=== PATIENT | male | born 2000 | race Caucasian/White ===

== ENCOUNTER 2021-04-21 21:05 | Emergency (ER) | payer OTHER ==
--- NOTE | 2021-04-21 21:31 | ED Physician Documentation ---
History of Present Illness - Stated complaint Stated Complaint: SOA/CHEST PX/DIZZY - Chief complaint Chief Complaint: General - History obtained from History obtained from: Patient - Additonal information Additional information: Patient comes emergency department with chief complaint of intermittent chest pain. He states he gets a sharp and sometimes spasm-like pain that starts in his substernal area and spreads over his left breast. He states he can take deep breaths but it almost hurts more to let the breath out. He states that this can last anywhere from a couple of minutes to up to 45 minutes and subsides on its own. He has been noticing the episodes over the last week and a half, and states that some days he gets them and other days he does not. He states that the only trigger he can think of is that he tends to get a numb and dizzy feeling the morning after Having any amount of alcohol, even a small amount, and the chest symptoms seems to be linked to that sometimes. Patient states that he gets a sense of shortness of breath, but it seems to mostly be because it hurts to breathe. He states he has noticed some puffiness in his ankles and feet at the end of the day, but no calf swelling or pain. The patient denies any chest trauma. He has not been working out. He denies any history of acid reflux. No nausea or vomiting. He states he actually feels fairly fine right now, but his sister, who is a nurse, told him to come in and get evaluated. Patient denies any history of young MIs in his family or aneurysms. No history of DVT/PE. The patient is otherwise healthy, and is employed by the [employer]. He is not a smoker. No other complaints at this time. Review of Systems Ten Systems: 10 systems reviewed and negative Constitutional: reports: Reviewed and negative Eyes: reports: Reviewed and negative Ears: reports: Reviewed and negative Nose: reports: Reviewed and negative Throat: reports: Reviewed and negative Cardiac: reports: Chest pain / pressure. denies: Pedal edema, Calf pain Respiratory: reports: Dyspnea GI: reports: Reviewed and negative : reports: Reviewed and negative Skin: reports: Reviewed and negative Musculoskeletal: reports: Reviewed and negative Neurologic: reports: Reviewed and negative Psychiatric: reports: Reviewed and negative Endocrine: reports: Reviewed and negative Immunocompromised: reports: Reviewed and negative PD PAST MEDICAL HISTORY - Allergies Allergies/Adverse Reactions: Allergies Allergy/AdvReac Type Severity Reaction Status Date / Time No Known Drug Allergies Allergy Verified 04/21/21 21:11 PD ED PE NORMAL - Vitals Vital signs reviewed: Yes - General General: Alert and oriented X 3, No acute distress, Well developed/nourished - HEENT HEENT: Atraumatic, PERRL, EOMI, Moist mucous membranes - Neck Neck: Supple, no meningeal sign - Cardiac Cardiac: RRR, No murmur, Strong equal pulses - Respiratory Respiratory: No respiratory distress, Clear bilaterally - Abdomen Abdomen: Soft, Non tender, Non distended - Derm Derm: Normal color, Warm and dry, No rash - Extremities Extremities: No deformity, No edema, No calf tenderness / cord - Neuro Neuro: Alert and oriented X 3, physicist acoustics 2-12 intact, Normal speech - Psych Psych: Normal mood, Normal affect Results - Vitals Vitals: Vital Signs - 24 hr 04/21/21 04/21/21 04/21/21 21:11 21:15 21:52 Temperature 36.5 C 36.5 C 36.5 C Heart Rate 86 86 81 Respiratory 16 16 16 Rate Blood Pressure 144/61 H 144/61 H 143/60 H O2 Saturation 98 98 99 Oxygen O2 Source Room air - EKG (time done) 2114 Rate: Rate (enter#) (78) Rhythm: NSR [place]: Normal Intervals: Normal MS QRS: Normal Ischemia: Normal ST segments Compare to prior EKG: Old EKG unavailable Computer interpretation: Agree with computer - Labs Labs: Laboratory Tests 04/21/21 21:30 D-Dimer < 200.0 L - Rads (name of study) chest xr Radiology: Final report received, EMP read indepedently, See rad report (neg) PD MEDICAL DECISION MAKING - ED course Complexity details: reviewed results, re-evaluated patient, considered differential, d/w patient ED course: The patient was worked up with EKG, chest x-ray, and D-dimer, all of which were unremarkable. I discussed with the patient that we have not found any evidence of an emergent condition today. I have encouraged him to follow-up with his primary doctor for further concerns regarding this. Departure - Departure Disposition: 01 Home, Self Care Clinical Impression: Chest pain Qualifiers: Chest pain type: unspecified Qualified Code(s): R07.9 - Chest pain, unspecified Condition: Stable Instructions: ED Chest Pain NonCardiac Comments: Your EKG, chest x-ray and D-dimer, the lab that we checked to assess possibility of blood clot, are all within normal limits. Your vital signs and physical exam also are reassuring. There is no evidence of a serious or emergent cause of your chest pain. Given that you noticed the chest pain is worse with movement of your chest wall, such as breathing out, the pain is most likely structural in nature as opposed to coming from one of your vital organs. New may use ibuprofen and/or Tylenol to help with the discomfort. If you feel that drinking alcohol makes this worse, then you should avoid this if you wish to not have the pain anymore. If you have further concerns please follow-up with your primary care physician for further evaluation. Discharge Date/Time: 04/21/21 21:53
--- NOTE | 2021-04-21 21:48 | XRAY Report ---
PROCEDURE: Chest 1 View X-Ray INDICATIONS: chest pain TECHNIQUE: One view of the chest was acquired. COMPARISON: None FINDINGS: Surgical changes and devices: None. Lungs and pleura: No pleural effusions or pneumothorax. Lungs are clear. Mediastinum: Mediastinal contours appear normal. Heart size is normal. Bones and chest wall: No suspicious bony lesions. Overlying soft tissues appear unremarkable. IMPRESSION: No acute cardiopulmonary disease process. Reviewed by: Eva Garrett MD, PhD on 04/21/2021 9:46 PM PST Approved by: Eva Garrett MD, PhD on 04/21/2021 9:46 PM PST Station ID: [id number]
[2021-04-21 21:53] VITALS: BP 143/60
== END 2021-04-21 21:53 | disposition home or self-care (01) ==
LOC: ED 21:05
DX: R07.1 Chest pain on breathing (principal); R06.02 Shortness of breath
CPT/HCPCS: 36415; 85379; 93005; 99284

== ENCOUNTER 2022-07-21 11:34 | Emergency (ER) | payer OTHER ==
--- NOTE | 2022-07-21 12:11 | XRAY Report ---
PROCEDURE: Shoulder 3 View LT INDICATIONS: shoulder px from GLF TECHNIQUE: 3 views of the shoulder were acquired. COMPARISON: None. FINDINGS: Bones: No fractures or dislocations. No suspicious bony lesions. Visualized ribs appear intact. Soft tissues: No suspicious soft tissue calcifications. IMPRESSION: No acute left shoulder fracture or dislocation. Reviewed by: Delon Bergman MD on 07/21/2022 12:09 PM [facility] Approved by: Delon Bergman MD on 07/21/2022 12:09 PM [facility] Station ID: [id number]
--- NOTE | 2022-07-21 13:16 | ED Physician Documentation ---
PD HPI UPPER EXT INJURY - Stated complaint Stated Complaint: LFT SHOULDER INJURY - Chief complaint Chief Complaint: Trauma Ext - History obtained from History obtained from: Patient - Additonal information Additional information: PT comes to the ED for CC of L shoulder pain after a snowboarding accident a few days ago. The pt states he was doing a rail trick, when his board came off the rail, and he fell, striking his shoulder on the rail. He c/o anterolateral pain since. No deformity, edema. Moderately limited ROM. PD PAST MEDICAL HISTORY - Past Medical History Cardiovascular: None Respiratory: None Neuro: None Endocrine/Autoimmune: None GI: None : None HEENT: None Psych: None Musculoskeletal: None Derm: None - Past Surgical History Past Surgical History: No - Present Medications Home Medications: Ambulatory Orders Medication Instructions Recorded Confirmed HYDROcod/ACETAM 5/325 [[place] 5/325] 1 - 2 tablet PO Q6H PRN #14 tablet 07/21/22 - Allergies Allergies/Adverse Reactions: Allergies Allergy/AdvReac Type Severity Reaction Status Date / Time No Known Drug Allergies Allergy Verified 07/21/22 11:47 - Social History Does the pt smoke?: No Smoking Status: Never smoker Does the pt drink ETOH?: Yes Does the pt have substance abuse?: No PD ED PE NORMAL - Vitals Vital signs reviewed: Yes - General General: Alert and oriented X 3, No acute distress - HEENT HEENT: Atraumatic, PERRL, EOMI, Moist mucous membranes - Neck Neck: Supple, no meningeal sign - Cardiac Cardiac: RRR, No murmur - Respiratory Respiratory: No respiratory distress, Clear bilaterally - Derm Derm: Normal color, Warm and dry, No rash - Extremities Extremities: No deformity, No edema, Other (L shoulder Anterior TTP. Moderately limited ROM in all directions.) - Neuro Neuro: Alert and oriented X 3 - Psych Psych: Normal mood, Normal affect Results - Vitals Vitals: Oxygen O2 Source Room air - Rads (name of study) L shoulder XR Radiology: Final report received, See rad report (neg) PD Medical Decision Making - ED course Complexity details: reviewed results, re-evaluated patient, considered differential, d/w patient ED course: Pt was worked up with L shoulder XR series, which was negative. We have discussed ROM exercises and symptomatic management at home. We have discussed the indications for follow-up and return. Departure - Departure Disposition: 01 Home, Self Care Clinical Impression: Sprain of shoulder Qualifiers: Encounter type: initial encounter Shoulder sprain type: unspecified sprain Laterality: left Qualified Code(s): S43.402A - Unspecified sprain of left shoulder joint, initial encounter Condition: Stable Instructions: ED Sprain Shoulder Prescriptions: HYDROcod/ACETAM 5/325 [[place] 5/325] 1 - 2 tablet PO Q6H PRN #14 tablet PRN Reason: Pain Comments: Your x-ray series of the left shoulder looks good. There is no evidence of a f racture or dislocation. Most likely, based on the location of pain and the limitation of movement, you have sprained your shoulder. In general, these kinds of injuries heal well on their own, but can take up to several weeks to begin to feel back to normal. In general, you should start to notice improvement over the next couple of weeks and if you have not began to feel any improvement at all, then by this time, you should schedule an appointment to follow-up with your doctor to discuss whether an MRI would be appropriate. In the meantime, you may take ibuprofen and Tylenol as needed to help with the pain in your shoulder. If this regimen is not sufficient, you may substitute for prescription pain medicine for Tylenol. The prescription for this has been electronically transmitted to the [facility] pharmacy in [place] your request. You should also apply ice packs several times a day to help with the pain and swelling. Also helpful is doing range of motion exercises. These may not necessarily feel comfortable, but will help to work some of the inflammation out and also, will prevent your shoulder from getting sore. We have discussed pot stirs and wall creeps. You may also have your gently range your arm to help get moving again. Consider putting a heat pack on the sore area for about 20 minutes prior to range of motion exercises to help give your shoulder more flexibility. You should not wear a sling as this will cause your arm to freeze up more at the shoulder. Discharge Date/Time: 07/21/22 13:27
[2022-07-21 13:28] VITALS: BP 144/72
== END 2022-07-21 13:27 | disposition home or self-care (01) ==
LOC: ED 11:34
DX: S43.402A Unspecified sprain of left shoulder joint, initial encounter (principal); W19.XXXA Unspecified fall, initial encounter; Y93.23 Activity, snow (alpine) (downhill) skiing, snowboarding, sledding, tobogganing and snow tubing
CPT/HCPCS: 99283

== ENCOUNTER 2022-10-25 07:41 | Emergency (ER) | payer OTHER ==
[2022-10-25 07:52] VITALS: BP 147/74
[2022-10-25] MEDS ORDERED: SODIUM CHLORIDE 0.9% 1,000 ML IV STA (07:55)
[2022-10-25] MEDS ORDERED: METOCLOPRAMIDE 10 MG/2 ML VIAL IVP STA (07:55)
--- NOTE | 2022-10-25 07:56 | ED Physician Documentation ---
PD HPI ABD PAIN - Stated complaint Stated Complaint: VOMITING - Chief complaint Chief Complaint: Abd Pain - History obtained from History obtained from: Patient - Additional information Additional information: Otherwise healthy 22-year-old gentleman had a few drinks last night. Did not feel drunk per se but this morning started vomiting at 5 AM. There is some abdominal discomfort with it but no diarrhea. No sick contacts or recent travel. No history of abdominal surgeries. Review of Systems Constitutional: denies: Fever, Chills Cardiac: denies: Chest pain / pressure Respiratory: denies: Dyspnea PD PAST MEDICAL HISTORY - Past Medical History Past Medical History: Yes Cardiovascular: None Respiratory: None Neuro: None Endocrine/Autoimmune: None GI: None : None HEENT: None Psych: Depression, Anxiety Musculoskeletal: None Derm: None - Past Surgical History Past Surgical History: No - Present Medications Home Medications: Ambulatory Orders Medication Instructions Recorded Confirmed HYDROcod/ACETAM 5/325 [[place] 5/325] 1 - 2 tablet PO Q6H PRN #14 tablet 07/21/22 - Allergies Allergies/Adverse Reactions: Allergies Allergy/AdvReac Type Severity Reaction Status Date / Time No Known Drug Allergies Allergy Verified 10/25/22 07:50 - Social History Does the pt smoke?: No Smoking Status: Never smoker Does the pt drink ETOH?: Yes Does the pt have substance abuse?: No PD ED PE NORMAL - Vitals Vital signs reviewed: Yes - General General: Alert and oriented X 3, Other (Retching and uncomfortable but nontoxic) - HEENT HEENT: PERRL, EOMI - Abdomen Abdomen: Normal bowel sounds, Soft, Non tender - Neuro Neuro: Alert and oriented X 3, Normal speech Results - Vitals Vitals: Vital Signs - 24 hr 10/25/22 07:47 Temperature 36.6 C Heart Rate 76 Respiratory 16 Rate Blood Pressure 147/74 H O2 Saturation 98 Oxygen O2 Source Room air - Labs Labs: Laboratory Tests 10/25/22 08:03 Sodium 138 Potassium 4.0 Chloride 105 Carbon Dioxide 25 Anion Gap 8.0 BUN 14 Creatinine 0.8 Estimated GFR (MDRD) 122 Glucose 136 H Calcium 8.8 PD Medical Decision Making - ED course ED course: 22-year-old gentleman with vomiting, benign exam. Appears well. BMP notable for mild hyperglycemia related to stress, nothing else of concern there. After a Reglan dose IV and some fluids and a subsequent Zofran dose he was symptom- free. Nontender on reevaluation at 920 in the morning. Given close return precautions. He was offered a prescription for Zofran but says he has some at home and plans to use that instead. Departure - Departure Disposition: 01 Home, Self Care Clinical Impression: Vomiting Qualifiers: Vomiting type: unspecified Nausea presence: with nausea Qualified Code(s): R11.2 - Nausea with vomiting, unspecified Instructions: ED Nausea Vomiting Comments: If the pain worsens, or if you are not feeling better tomorrow morning please return for reevaluation. Sooner if worse. You can take the Zofran you have at home per package instructions for nausea.
[2022-10-25 08:14] LABS: CALCIUM 8.8 mg/dL (8.5-10.3); CREATININE 0.8 mg/dL (0.6-1.2)
[2022-10-25] MEDS ORDERED: ONDANSETRON 4 MG/2 ML VIAL IVP STA (08:55)
== END 2022-10-25 09:31 | disposition home or self-care (01) ==
LOC: ED 07:41
DX: R11.2 Nausea with vomiting, unspecified (principal)
CPT/HCPCS: 36415; 80048; 96374; 96375; 99283; J2765

== ENCOUNTER 2022-12-15 20:09 | Emergency (ER) | payer OTHER ==
--- NOTE | 2022-12-15 21:07 | ED Physician Documentation ---
PD HPI MHE - Stated complaint Stated Complaint: MHE - Chief complaint Chief Complaint: MHE - History obtained from History obtained from: Patient - Additional information Additional information: The patient comes to the emergency department with chief complaint of suicidal ideation that has been getting worse over the last couple of weeks. He has a history of depression and anxiety which he thinks goes back years, but was first diagnosed over the winter. He was started on sertraline he thinks in June and feels that initially helped but that now, it does not seem to be helping at all. He has also struggled with chronic nausea which he attributes to the sertraline, as every time he takes a break from his sertraline, the nausea improves. He states that when he is on sertraline, he will sometimes go a week without eating because everything he puts in his mouth makes him feel nauseated. He states he has not taken his sertraline in 5 days and that his appetite is finally returning to normal. The patient states that he has a good relationship with his and his parents, but that his experience with the [employer] has been a struggle. 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 The patient also states that he had a much- needed vacation planned in the spring but because 2 other members of his group tested positive for alcohol or drugs, he was pulled from his leave and had to stay in work instead. He states this was a big blow and has also contributed to the general breakdown in his relationship with the [employer]. The patient states he is here because his finally made him come. He denies any prior suicide attempts but does note that he had a gun some months ago which he was pointing it out himself and a friend stopped him. The patient denies any other medicati ons previously or any inpatient psych stays. He states he did have a psychiatrist, Captain Rodriguez, in the [facility] but that Captain Rodriguez retired in September. He states that nobody ever discussed being on any different medications in response to the side effects and ineffectual already of his sertraline. He does note that he has seen a psychologist recently and he does have another appointment in December with a different mental health provider, though it is not clear if this is a psychiatrist or not. The patient does admit to smoking some marijuana over the weekend but denies other drug use. There is some mental health history in his family including possible bipolar disorder on his father side and depression and anxiety and on his mom's side. No other complaints at this time. PD PAST MEDICAL HISTORY - Past Medical History Cardiovascular: None Respiratory: None Neuro: None Endocrine/Autoimmune: None GI: None : None HEENT: None Psych: Depression, Anxiety Musculoskeletal: None Derm: None - Past Surgical History Past Surgical History: No - Present Medications Home Medications: Ambulatory Orders Medication Instructions Recorded Confirmed HYDROcod/ACETAM 5/325 [[place] 5/325] 1 - 2 tablet PO Q6H PRN #14 tablet 07/21/22 - Allergies Allergies/Adverse Reactions: Allergies Allergy/AdvReac Type Severity Reaction Status Date / Time No Known Drug Allergies Allergy Verified 12/15/22 20:17 - Social History Does the pt smoke?: No Smoking Status: Never smoker Does the pt drink ETOH?: Yes Does the pt have substance abuse?: No PD ED PE NORMAL - Vitals Vital signs reviewed: Yes - General General: Alert and oriented X 3, No acute distress, Well developed/nourished - HEENT HEENT: Atraumatic, PERRL, EOMI, Moist mucous membranes - Neck Neck: Supple, no meningeal sign - Cardiac Cardiac: RRR, No murmur - Respiratory Respiratory: No respiratory distress, Clear bilaterally - Abdomen Abdomen: Soft, Non tender, Non distended - Derm Derm: Normal color, Warm and dry, No rash - Extremities Extremities: No deformity, No edema - Neuro Neuro: Alert and oriented X 3, Other (Grossly intact) - Psych Psych: Other (The patient answers questions readily, but occasionally becomes tearful.) Results - Vitals Vitals: Vital Signs - 24 hr 12/15/22 12/15/22 20:14 20:17 Temperature 37.1 C 37.1 C Heart Rate 89 89 Respiratory 16 16 Rate Blood Pressure 157/78 H 157/78 H O2 Saturation 97 97 Oxygen O2 Source Room air - Labs Labs: Laboratory Tests 12/15/22 12/15/22 12/15/22 20:22 20:22 21:14 WBC 9.9 RBC 4.88 Hgb 14.0 Hct 41.9 L MCV 85.9 MCH 28.7 MCHC 33.4 RDW 12.5 Plt Count 200 MPV 9.7 Neut # (Auto) 7.7 H Lymph # (Auto) 1.2 L Ware # (Auto) 0.9 Eos # (Auto) 0.0 Baso # (Auto) 0.1 Absolute Nucleated RBC 0.00 Nucleated RBC % 0.0 Sodium Potassium Chloride Carbon Dioxide Anion Gap BUN Creatinine Estimated GFR (MDRD) Glucose Calcium Total Bilirubin AST ALT Alkaline Phosphatase Total Protein Albumin Globulin Albumin/Globulin Ratio Lipase TSH Urine Opiates Screen NEGATIVE Ur Oxycodone Screen NEGATIVE Urine Methadone Screen NEGATIVE Ur Propoxyphene Screen NEGATIVE Ur Barbiturates Screen NEGATIVE Ur Tricyclics Screen NEGATIVE Ur Phencyclidine Scrn NEGATIVE Ur Amphetamine Screen NEGATIVE U Methamphetamines Scrn NEGATIVE U Benzodiazepines Scrn NEGATIVE Urine Cocaine Screen NEGATIVE U Cannabinoids Screen POSITIVE H Ethyl Alcohol SARS-CoV-2 (PCR) NOT DETECTED 12/15/22 21:14 WBC RBC Hgb Hct MCV MCH MCHC RDW Plt Count MPV Neut # (Auto) Lymph # (Auto) Ware # (Auto) Eos # (Auto) Baso # (Auto) Absolute Nucleated RBC Nucleated RBC % Sodium 139 Potassium 3.7 Chloride 105 Carbon Dioxide 25 Anion Gap 9.0 BUN 12 Creatinine 0.8 Estimated GFR (MDRD) 122 Glucose 94 Calcium 9.7 Total Bilirubin 0.6 AST 14 ALT 9 L Alkaline Phosphatase 59 Total Protein 7.5 Albumin 4.8 Globulin 2.7 Albumin/Globulin Ratio 1.8 Lipase 10 L TSH 2.57 Urine Opiates Screen Ur Oxycodone Screen Urine Methadone Screen Ur Propoxyphene Screen Ur Barbiturates Screen Ur Tricyclics Screen Ur Phencyclidine Scrn Ur Amphetamine Screen U Methamphetamines Scrn U Benzodiazepines Scrn Urine Cocaine Screen U Cannabinoids Screen Ethyl Alcohol < 10.0 SARS-CoV-2 (PCR) PD Medical Decision Making - ED course Complexity details: reviewed old records, reviewed results, re-evaluated patient, considered differential, d/w patient ED course: The patient was worked up with the usual medical clearance labs, including ER abdominal panel, CBC, TSH, urine drug screen, alcohol level, and COVID test. A telepsychiatry evaluation was ordered, And telepsychiatrist felt the patient should go inpatient for treatment. He was voluntary, and was ultimately excepted by Azam Small at [facility]. The patient has been informed that he has been accepted at [facility] and he is willing to go voluntarily. He will be transferred by S ambulance. Departure - Departure Disposition: 65 Psych Hosp/Unit DC/Xfer Clinical Impression: Suicidal ideation Depression Qualifiers: Depression Type: major depressive disorder Major depression recurrence: recurrent Active/Remission status: currently active Major depression episode severity: severe Psychotic features: without psychotic features Qualified Code(s): F33.2 - Major depressive disorder, recurrent severe without psychotic features Condition: Serious Forms: PCP List
[2022-12-15 21:25] LABS: BASOPHILS # (AUTO) 0.1 10^3/uL (0.0-0.1); BASOPHILS % (AUTO) 0.5 %; EOSINOPHILS % (AUTO) 0.1 %; HCT - HEMATOCRIT 41.9 % (42.0-52.0); LYMPHOCYTES # (AUTO) 1.2 10^3/uL (1.5-3.5); LYMPHOCYTES % (AUTO) 11.7 %; MEAN CORPUSCULAR HEMOGLOBIN 28.7 pg (27.0-31.0); MEAN CORPUSCULAR HGB CONC 33.4 g/dL (32.0-36.0); MEAN CORPUSCULAR VOLUME 85.9 fL (80.0-94.0); MEAN PLATELET VOLUME 9.7 fL (7.4-11.4); MONOCYTES # (AUTO) 0.9 10^3/uL (0.0-1.0); MONOCYTES % (AUTO) 9.5 %; NEUTROPHILS # (AUTO) 7.7 10^3/uL (1.5-6.6); NEUTROPHILS % (AUTO) 77.8 %; PLT - PLATELET COUNT 200 10^3/uL (130-450); RED BLOOD COUNT 4.88 10^6/uL (4.70-6.10); RED CELL DISTRIBUTION WIDTH 12.5 % (12.0-15.0); WHITE BLOOD COUNT 9.9 x10^3/uL (4.8-10.8)
[2022-12-15 21:30] LABS: MUDS CUTOFF CONCENTRATIONS CUTOFF CONC BELOW:
[2022-12-15 21:43] LABS: THC CANNABINOID SCREEN, URINE POSITIVE (NEGATIVE)
[2022-12-15 21:44] LABS: AMPHETAMINE SCREEN,URINE NEGATIVE (NEGATIVE); BARBITURATE SCREEN,UR NEGATIVE (NEGATIVE); BENZODIAZEPINES SCREEN, URINE NEGATIVE (NEGATIVE); COCAINE SCREEN URINE NEGATIVE (NEGATIVE); METHADONE SCREEN, URINE NEGATIVE (NEGATIVE); METHAMPHETAMINES SCREEN, URINE NEGATIVE (NEGATIVE); OPIATE SCREEN, URINE NEGATIVE (NEGATIVE); OXYCODONE SCREEN, URINE NEGATIVE (NEGATIVE); PROPOXYPHENE SCREEN, URINE NEGATIVE (NEGATIVE); TRICYCLIC ANTIDEPRESSANT,URINE NEGATIVE (NEGATIVE)
[2022-12-15 21:57] LABS: THYROID STIMULATING HORMONE 2.57 uIU/mL (0.34-5.60)
[2022-12-15 21:58] LABS: ALBUMIN 4.8 g/dL (3.2-5.5); ALBUMIN/GLOBULIN RATIO 1.8 (1.0-2.2); ALKALINE PHOSPHATASE 59 IU/L (42-121); ALT ALANINE AMINOTRANSFERASE 9 IU/L (10-60); AST ASPARTATE AMINOTRANSFERASE 14 IU/L (10-42); BILIRUBIN,TOTAL 0.6 mg/dL (0.2-1.0); BUN - BLOOD UREA NITROGEN 12 mg/dL (6-20); CALCIUM 9.7 mg/dL (8.5-10.3); CARBON DIOXIDE - CO2 25 mmol/L (21-32); CHLORIDE 105 mmol/L (101-111); CREATININE 0.8 mg/dL (0.6-1.3); ETOH - ETHANOL < 10.0 mg/dL; GFR - MDRD 122 (>89); GLUCOSE 94 mg/dL (74-104); LIPASE 10 U/L (11-82); POTASSIUM 3.7 mmol/L (3.5-4.5); SODIUM 139 mmol/L (135-145); TOTAL PROTEIN 7.5 g/dL (6.4-8.9)
[2022-12-15] MEDS ORDERED: ZOLPIDEM 5 MG TABLET PO SCH (23:45)
--- NOTE | 2022-12-16 04:07 | TELEPSYCH PHYS NOTE ---
Telepsych Consultation Note Consult: Name: ATIF DE LA CRUZ: 2000 DateandTime: 12/16/2022 6:58:02 AM [facility] [place] Length of consult: 40 This evaluation was conducted via video telepsychiatry with the assistance of onsite staff Reason for consult: Assessment of an active risk factor - SI/HI/Psychotic and dangerous to self or others Requested by: ED History of Present Illness: Pt seen via televideo with the help of onsite staff. Pt is a 22 yo male with hx of depression and anxiety. Pt presented to the ED, BIB at his request due to significantly worsening depression and SI planning. Noted specific plan to shoot himself with his handgun. States it is currently located in a locked box under his bead. Pt states he believes he was within seconds from acting on the thoughts when a friend happened to come over to see him unannounced. Pt states he told the friend and his about his mental struggles and she brought him into the ED. Pt notes multiple stressors and difficulty coping. Stressors surround his service. Pt states he was previously being seen by a base psychiatrist however that physician retired in August/September and there has been no replacement. States he was previously prescribed Zoloft however also dced due to intolerable side effects. States he has been trying to advocate for himself and get additional treatment however states he feels that he has been unsuccessful. Notes symptoms have significantly worsened in the past 2 weeks. Reports limited sleep, poor appetite and subjective weight loss. When asked about deterrents, states I guess my and my child but its really really hard right now. States the suicidal thoughts were no longer scary and more comforting for him. He notes prior hx of untreated depression. On ROS, pt denies AVHs, delusions nor HI. Reports ongoing SI and noted a specific plan to shoot himself with his handgun. Pt has 2 additional guns in the home. Sales Engagement Manager spoke to the pts , Zahira @ [phone] who reported immediate safety concerns. Has agreed to remove the guns from the home. States he has been struggling and feels that it is necessary for him to go inpt for treatment and safety. No known prior attempts however she is aware of prior Ideation. Pt presents as an ongoing danger to himself requiring acute inpt psychiatric admission for safety, stabilization and treatment. Pt is voluntary for inpt treatment. Collateral Contacted: YesCollateral name:Zahira Carbajal phone number:wifeCollateral relationship to the patient:[phone] Sleep issues?: YesSleep Quantity:3 hoursSleep Quality:poor, interrupted Psychiatric History/Treatment History: Past diagnoses: depression, anxiety Hospitalizations: No Current Treatment:YesMedication management:YesMedications:base psychiatrist retired in September and no replacement as yet.Therapy:No Suicide Assessment: PSS-3: 1) Over the past 2 weeks have you felt down, depressed or hopeless?Yes 2) Over the past 2 weeks have you had thoughts of killing yourself?Yes 3) Have you ever in your life attempted to kill yourself?No Within the past 6 months? PSS-3 Secondary Screen: 1) Positive on PSS-3 questions 2 & 3 active SI with a past attempt?Yes D escription:active SI with plan to shoot himself. Has means at home. will remove all guns from the home. 2) Have you been thinking about how you might kill yourself?Yes Description: shoot himself. has 3 guns in the home. agreed to have them removed. 3) Have you had some intention of acting on your thoughts?Yes 4) Lifetime psychiatric hospitalization?No 5) Has drinking or substance abuse ever been a problem for you?No 6) Current irritability, agitation, or aggression?No PSS-3 Secondary Screen Scoring: Severe Notes: Mild(0-2) No current attempt and no plan/intent Moderate(3-4) No current attempt, Plan OR intent but not both Severe(5-6) Current Attempt with Plan AND intent JCO-based Safety Assessment: Risk Factors Stressors: see hpi Attempts/Self-injury: No Impulsivity:No Drug/Alcohol History:No Trauma History:Unknown-NA Access to firearms:YesDescription:reports 3 guns in the home. Identified the handgun under his bed in a lockbox as his plan/means. has agreed to move all guns from the home. HI/Violence/Property destruction:No Legal: No Family Psych History:YesDescription:Mother with depression. Father with ? bipolar disorder Family History of suicide:No Protective Factors: Can handle stress well?No Shinto?Unknown-NA External: Social supports/ Therapeutic relationships: YesDescription:. No longer has a psychiatrist. previous retired in september. Relationship history: . Living situation: lives with and son (7 months) Employment: YesDescription:[employer]) Education: HS. Responsibility to family/children/work: YesDescription:"my and son, anne" Future orientation:No Health History: Medical History: none reported Medications & Freq: Previously prescribed ZOloft however it was d/celestino due to intolerable side effects. no current medications. Allergies: NKDA Mental Status Exam: Appearance and Attire:Good eye contact Psychomotor agitation:No abnormality Attitude and behavior:Cooperative Speech:No abnormality, Mood:Depressed Affect:Constricted Thought process:Logical Thought content:Suicidal ideation, No homicidal ideation Perception:No hallucinations Intel:Average Abstract:Appropriate Language:No abnormality Orientation:Oriented x 4 Sense:Normal Knowledge:Appropriate for education and socioeconomic status Memory:Intact Insight:Severe impairment Judgement:Severe impairment Gait:not assessed Impression/Risk Assessment: Current Suicide Risk Elevated?Yes Current Violence Risk Elevated?No Issues with ability to care for self?No Summary: Pt reports ongoing SI with plan and means. Pts noted immediate safety concerns. Pt presents as an ongoing danger to himself requiring acute inpt psychiatric admission for safety, stabilization and treatment. Pt is voluntary for inpt treatment. Diagnosis: F33.2 Major depressive disorder, recurrent severe without psychotic features CPT Codes: 12428 - Psychiatric Diagnostic Evaluation with Medical Services Treatment Plan: General: Patient requires acute inpt psychiatric admission For safety, stabilization and treatment Pt is voluntary for inpt treatment Should the patient no longer agree to voluntary admission, He cannot leave and will need to be referred for involuntary commitment. Level of Care: INPT Psychiatric Clearance: No Observation level 1:1 needed?: YesNotes:active SI Pharmacological: Will start Abilify 5mg po Daily targeting mood sxs. risks, benefits alternatives discussed. Pt in agreement to start. Trazodone 50mg po HS PRN insomnia Patient psychotic?No Therapy: supportive Follow up needed while in the hospital?: YesNumber of times:Please re- consult Q36--48 hours while awaiting placement Discussed plan with onsite marine steam fitter helper: Yes Who Ana Lilia Stapleton MD - ED Physician Other: n/a List names and roles of persons who participated in consult: Nathan Oropeza AMber ()
[2022-12-16] MEDS ORDERED: traZODone 50 MG TABLET PO PRN (04:11)
[2022-12-16 06:28] VITALS: BP 114/65
[2022-12-16] MEDS ORDERED: ARIPiprazole 5 MG TABLET PO SCH (09:00)
== END 2022-12-16 09:30 ==
LOC: ED 20:09
DX: R45.851 Suicidal ideations (principal); F33.2 Major depressive disorder, recurrent severe without psychotic features; Z20.822 Contact with and (suspected) exposure to COVID-19
CPT/HCPCS: 36415; 80053; 80306; 80320; 83690; 84443; 85025; 87635; 99285; A9270; G0425; Q3014